=== PATIENT | male | born 1955 | race Caucasian/White ===

== ENCOUNTER 2016-10-28 23:23 | Emergency (ER) | payer BC ==
[2016-10-28] MEDS: NITROGLYCERIN 0.4MG SL TABLET #25 BTL SL PRN ×3 (23:36→23:44)
[2016-10-28] MEDS ORDERED: ASPIRIN 81 MG CHEWABLE TABLET PO ONE ×2 (23:39)
[2016-10-28] MEDS ORDERED: 0.9 % SODIUM CHLORIDE 1000ML 1,000 ML IV PRN (23:39)
--- NOTE | 2016-10-28 23:41 | Emergency Department Record ---
History of Present Illness - General Chief Complaint: Chest Pain Stated Complaint: CHEST PAIN, HIGH BP Time Seen by Provider: 10/28/16 23:35 Source: Patient, Family - History of Present Illness Initial Comments: Intermittent chest pain began around 7 p.m. as a dull squeezing anterior chest discomfort. It then became constant around 9 p.m. It radiating into his anterior jaw/neck associated with indigestion, diaphoresis and pallor. He denies history of AZ, PE. He has htn. and is a former smoker. PMH of hodgkins diagnosed in , recurred in 2001 with a stem cell transplant. Complaint: Chest pain - Related Data Home Medications Medication Instructions Recorded Confirmed Last Taken Albuterol Sulfate [Ventolin Hfa] 1 - 2 inh IH Q4HR PRN 10/28/16 10/28/16 Unknown Losartan Potassium [Cozaar] 100 mg PO DAILY 10/28/16 10/28/16 10/28/16 Verapamil HCl [Verapamil ER] 240 mg PO QAM 10/28/16 10/28/16 10/28/16 Allergies Allergy/AdvReac Type Severity Reaction Status Date / Time No Known Drug Allergies Allergy Verified 10/28/16 23:25 Review of Systems Reviewed: No additional complaints except as noted below Constitutional: Reports: As per HPI. Denies: Chills, Fever, Malaise, Night sweats, Weakness, Weight change Eyes: Reports: As per HPI. Denies: Eye discharge, Eye pain, Photophobia, Vision change ENT: Reports: As per HPI. Denies: Congestion, Dental pain, Ear pain, Epistaxis , Hearing loss, Throat pain Respiratory: Reports: As per HPI. Denies: Cough, Dyspnea, Hemoptysis, Stridor, Wheezes Cardiovascular: Reports: As per HPI. Denies: Arrhythmia, Chest pain, Dyspnea on exertion, Edema, Murmurs, Orthopnea, Palpitations, Paroxysmal nocturnal dyspnea, Rheumatic Fever, Syncope Endocrine: Reports: As per HPI. Denies: Fatigue, Heat or cold intolerance, Polydipsia, Polyuria Gastrointestinal: Reports: As per HPI. Denies: Abdominal pain, Constipation, Diarrhea, Hematemesis, Hematochezia, Melena, Nausea, Vomiting Genitourinary: Reports: As per HPI. Denies: Dysuria, Frequency, Hematuria, Incontinence, Retention, Testicular pain, Testicular mass, Urgency Musculoskeletal: Reports: As per HPI. Denies: Arthralgia, Back pain, Gout, Joint swelling, Myalgia, Neck pain Skin: Reports: As per HPI. Denies: Bruising, Change in color, Change in hair/ nails, Lesions, Pruritus, Rash Neurological: Reports: As per HPI. Denies: Abnormal gait, Confusion, Headache, Numbness, Paresthesias, Seizure, Tingling, Tremors, Vertigo, Weakness Psychiatric: Reports: As per HPI. Denies: Anxiety, Auditory hallucinations, Depression, Homicidal thoughts, Suicidal thoughts, Visual hallucinations Hematological/Lymphatic: Reports: As per HPI. Denies: Anemia, Blood Clots, Easy bleeding, Easy bruising, Swollen glands Past Medical History - SOCIAL HISTORY Smoking Status: Former smoker Physical Exam - General General Appearance: Alert, Oriented x3, Cooperative, Moderate distress - Head Head exam: Normal inspection - Eye Eye exam: Normal appearance, PERRL Pupils: Normal accommodation - ENT ENT exam: Normal exam, Mucous membranes moist, Normal external ear exam, Normal orophraynx, TM's normal bilaterally Ear exam: Normal external inspection. negative: External canal tenderness Nasal Exam: Normal inspection. negative: Discharge, Sinus tenderness Mouth exam: Normal external inspection, Tongue normal Teeth exam: Normal inspection. negative: Dental caries Throat exam: Normal inspection. negative: Tonsillar erythema, Tonsillar exudate - Neck Neck exam: Normal inspection, Full ROM. negative: Tenderness - Respiratory Respiratory exam: Normal lung sounds bilaterally. negative: Respiratory distress - Cardiovascular Cardiovascular Exam: Regular rate, Normal rhythm, Normal heart sounds. negative : Diastolic murmur, Systolic murmur - GI/Abdominal GI/Abdominal exam: Soft, Normal bowel sounds. negative: Tenderness - Rectal Rectal exam: Deferred - exam: Deferred - Extremities Extremities exam: Normal inspection, Full ROM, Normal capillary refill. negative: Tenderness - Back Back exam: Reports: Normal inspection, Full ROM. Denies: Muscle spasm, Rash noted, Tenderness - Neurological Neurological exam: Alert, Normal gait, Oriented X3, Reflexes normal - Psychiatric Psychiatric exam: Normal affect, Normal mood - Skin Skin exam: Dry, Intact, Normal color, Warm Course - Reevaluation(s) Reevaluation #1: SHAY CHEN who is activating the hatchery laborer. Patient and aware and in agreement. 10/28/16 23:57 Reevaluation #2: Patient improved with the nitro trial times 3, then stated his pain is returning on his anterior right chest. Morphine ordered, nitro drip at 5 mics, and 5500 U heparin bolus given with no drip. EMS at bedside preparing transport. Second EKG has ST elevation as before lead V2-6. 10/29/16 00:07 Medical Decision Making - Management Options MDM Management: Additional Work-up Planned (e.g. ADM/Transfer/OP Study) (To chemistry laboratory technician at [facility] Dr. Muñiz) - Data Complexity MDM Data: Labs Ordered and/or Reviewed, X-Ray Ordered and/or Reviewed (CXR portable:Neg per ED physician), EKG Ordered and/or Reviewed - Lab Data Result diagrams: 10/28/16 23:25 10/28/16 23:25 - EKG Data -: EKG Interpreted by Vt EKG: ST Elevation AZ (STEMI) Disposition Disposition: Transfer Clinical Impression: Acute AZ Qualifiers: Myocardial infarction ST status: ST elevation myocardial infarction Involved coronary artery: unspecified coronary artery Qualified Code(s): I21.3 - ST elevation (STEMI) myocardial infarction of unspecified site Disposition: Acute Care Hospital Transfer Transfer To: [facility] chemistry laboratory technician Reason For Transfer: acute [place] Accepting Physician: Dr. Muñiz cardiology Time Discussed w/Accepting Physician: 00:06 Condition: (2) Stable Forms: Patient Portal Access
[2016-10-28 23:44] LABS: BASO % 0.4 % (0-6); EOS % 2.3 % (0-6); GRAN % 64.6 % (47-80); HEMATOCRIT 47.4 % (42.0-52.0); HEMOGLOBIN 16.2 gm/dl (14.0-18.0); LYMPH % 23.5 % (16-45); MEAN CORPUSCULAR HEMOGLOBIN 31.5 pg (27-33); MEAN CORPUSCULAR HGB CONC 34.2 g/dl (32-36); MONO % 9.2 % (0-9); PLATELET COUNT 228 K/uL (130-400); RED BLOOD COUNT 5.15 M/uL (4.40-5.70); RED CELL DISTRIBUTION WIDTH 13.8 % (11.5-14.5)
[2016-10-28] MEDS ORDERED: NITROGLYCERIN/D5W 50 MG in DEXTROSE 5 % IN WATER 1 BAG IV SCH ×2 (23:45)
[2016-10-28 23:54] LABS: ANION GAP 15.1 (7-16); CARBON DIOXIDE 28.9 mmol/L (22-30); CREATININE 1.7 mg/dL (0.66-1.25)
[2016-10-28] MEDS ORDERED: HEPARIN SODIUM 1000 UNIT/1 ML 10ML VIAL IVP ONE (23:58)
[2016-10-28] MEDS ORDERED: MORPHINE SULFATE 5 MG/ML PFS IVP ONE (23:59)
[2016-10-29 00:06] LABS: CKMB 5.3 ug/L (0-6)
[2016-10-29 00:33] LABS: TROPONIN I 0.108 ng/mL (0.00-0.034)
== END 2016-10-29 00:10 | disposition short-term general hospital (02) ==
LOC: ER 23:23
DX: I21.3 ST elevation (STEMI) myocardial infarction of unspecified site (principal); I10 Essential (primary) hypertension; Z87.891 Personal history of nicotine dependence
CPT/HCPCS: 99285 ×2; 96374; 96375; 82550; 85025; 82553; 84484; 80048; 85379; 71010; 93005; 93010; J2270

== ENCOUNTER 2016-11-08 07:59 | Observation (INO) | payer BC ==
--- NOTE | 2016-11-08 08:27 | Emergency Department Record ---
History of Present Illness - General Chief Complaint: Shortness of breath Stated Complaint: SOB Time Seen by Provider: 11/08/16 08:27 Source: Patient Mode of Arrival: Ambulatory Limitations: No limitations - History of Present Illness Initial Comments: The patient is here due to a 2 day hx of SOB and SPENCER. The patient had an Anterior Wall TX 10 days ago and was transferred to [facility] where he received 2 stents. He was discharged 8 days ago and was doing well up until 2 days ago when the PHILIP came on. He feels like he is breathing thru a straw and is having mild upper chest heaviness which is MUCH worse with coughing but it is nothing like when he had his TX. There is mild sweating also. The patient also has had 2 days of body aches, HORN, cough with mild sputum and malaise. MD Complaint: Shortness of breath Onset/Timin -: Days(s) Severity: Moderate Consistency: Constant Improves With: Nothing Worsens With: Nothing Associated Symptoms: Cough Treatments Prior to Arrival: Asprin, Bronchodilator - Related Data Home Oxygen Therapy: No Home Medications Medication Instructions Recorded Confirmed Last Taken Albuterol Sulfate [Ventolin Hfa] 1 - 2 puff IH .EVERY 4-6 HOURS PRN 11/08/1603/2011/08/16 Allopurinol [Zyloprim] 100 mg PO DAILY 11/08/16 11/08/16 11/08/16 Aspirin [Adult Low Dose Aspirin EC] 81 mg PO DAILY 11/08/16 11/08/16 11/08/16 Atorvastatin Calcium 40 mg PO QHS 11/08/16 11/08/16 11/08/16 Carvedilol [Coreg] 6.25 mg PO DAILY 11/08/16 11/08/16 11/08/16 Fluticasone/Salmeterol 100/50 1 disk IH Q12H 11/08/16 11/08/16 11/08/16 [Advair 100/50] Lisinopril [Zestril] 5 mg PO DAILY 11/08/16 11/08/16 11/08/16 Prasugrel HCl [Effient] 10 mg PO DAILY 11/08/16 11/08/16 11/08/16 Allergies Allergy/AdvReac Type Severity Reaction Status Date / Time No Known Drug Allergies Allergy Verified 11/08/16 08:07 Travel Screening - Travel/Exposure Within Last 30 Days Have you traveled within the last 30 days?: No Review of Systems Constitutional: Reports: Chills, Malaise. Denies: Fever Eyes: Denies: Eye discharge ENT: Reports: Congestion Respiratory: Reports: Cough, Dyspnea Cardiovascular: Reports: Dyspnea on exertion. Denies: Arrhythmia, Chest pain Endocrine: Reports: Fatigue Gastrointestinal: Denies: Diarrhea, Vomiting Genitourinary: Denies: Dysuria Musculoskeletal: Denies: Back pain Skin: Denies: Bruising Past Medical History - SOCIAL HISTORY Smoking Status: Former smoker Alcohol Use: None Drug Use: None - RESPIRATORY Hx Respiratory Disorders: Yes Hx Asthma: Yes - CARDIOVASCULAR Hx Cardio Disorders: Yes Hx Hypertension: Yes (2017) - NEURO Hx Neuro Disorders: No - GI Hx GI Disorders: Yes Hx Liver Disease: Yes - Hx Genitourinary Disorders: No - ENDOCRINE Hx Endocrine Disorders: No - MUSCULOSKELETAL Hx Musculoskeletal Disorders: Yes Hx Gout: Yes - PSYCH Hx Psych Problems: No - HEMATOLOGY/ONCOLOGY Hx Hematology/Oncology Disorders: Yes Hx Cancer: Yes (Hodkin's) Hx Chemotherapy: Yes (x2 episodes) Hx Radiation Therapy: Yes Comment:: Stem cell transplant Family Medical History Any Significant Family History?: Yes Hx Cancer: Mother Hx Diabetes: Grandparents Hx Heart Disease: Father Hx HTN: Mother Physical Exam - General General Appearance: Alert, Oriented x3, Cooperative, No acute distress - Head Head exam: Atraumatic, Normocephalic, Normal inspection - Eye Eye exam: Normal appearance, PERRL - ENT Throat exam: Normal inspection. negative: Tonsillar erythema, Tonsillar exudate - Neck Neck exam: Normal inspection, Full ROM. negative: Tenderness - Respiratory Respiratory exam: Normal lung sounds bilaterally. negative: Chest wall tenderness, Rales, Respiratory distress, Rhonchi, Stridor - Cardiovascular Cardiovascular Exam: Regular rate, Normal rhythm, Normal heart sounds - GI/Abdominal GI/Abdominal exam: Soft, Normal bowel sounds. negative: Tenderness - Extremities Extremities exam: Normal inspection, Full ROM, Normal capillary refill. negative: Tenderness - Neurological Neurological exam: Alert, Normal gait. negative: Abnormal gait, Motor sensory deficit Course Vital Signs 11/08/16 08:00 Temperature 98.1 F Pulse Rate 75 Respiratory 20 Rate Blood Pressure 125/80 Pulse Ox 96 - Reevaluation(s) Reevaluation #1: The patient is doing much better at this time. He is resting comfortably and his breathing is much better. He is still coughing with sputum production and his chest pain is much worse with coughing. I did recommend hospital admission for him and he agrees. I also felt he is stable enough for admission here at [facility] due to the fact his symptoms are pulmonary and nothing like when he had his TX. Also the fact his cardiac tests are WNL is very important also. I did consult with Dr. Castelan who is the [facility] [employer] exchange underwriting consultant and he agreed the patient is stable enough to be admitted here. I then discussed the case with Jyoti (ISAAC) and she accepted the admission. 11/08/16 10:20 Reevaluation #2: The patient is resting comfortably at this time. He still is having CP when coughing only. His PHILIP is much improved. 11/08/16 10:27 Medical Decision Making - Data Complexity MDM Data: Labs Ordered and/or Reviewed, X-Ray Ordered and/or Reviewed, EKG Ordered and/or Reviewed - Lab Data Result diagrams: 11/08/16 08:10 11/08/16 08:10 - EKG Data -: EKG Interpreted by Me (NSR at 74, Flipped T V3-6, I AVL, consistent with a hx of an TX 10 days ago) - Radiology Data Radiology results: Report reviewed (CXR: Neg per Rad.) Disposition Disposition: Admit Clinical Impression: COPD exacerbation Decision to Admit: Admit from ER Decision to Admit Date: 11/08/16 Decision to Admit Time: 10:23 Accepting Physician: Sharlene Time Discussed w/Accepting Physician: 10:23 Forms: Patient Portal Access Time of Disposition: 10:23
[2016-11-08] MEDS ORDERED: IPRATROPIUM/ALBUTEROL (0.5MG/3MG) NEB INH ONE (08:38)
[2016-11-08 08:44] LABS: BASO % 0.1 % (0-6); EOS % 0.6 % (0-6); HEMATOCRIT 43.3 % (42.0-52.0); HEMOGLOBIN 15.1 gm/dl (14.0-18.0); LYMPH % 10.8 % (16-45); MEAN CELL VOLUME 91.2 fl (81-97); MEAN CORPUSCULAR HEMOGLOBIN 31.8 pg (27-33); MEAN CORPUSCULAR HGB CONC 34.9 g/dl (32-36); MEAN PLATELET VOLUME 9.1 fl (7.4-10.4); MONO % 13.5 % (0-9); PLATELET COUNT 220 K/uL (130-400); RED BLOOD COUNT 4.75 M/uL (4.40-5.70); RED CELL DISTRIBUTION WIDTH 13.5 % (11.5-14.5); WHITE BLOOD COUNT W/O DIFF 15.8 K/uL (4.2-12.2)
[2016-11-08 09:02] LABS: ANION GAP 11.6 (7-16); BLOOD UREA NITROGEN 20 mg/dL (9-20); CARBON DIOXIDE 24.4 mmol/L (22-30); CREATINE PHOSPHOKINASE 66 U/L (55-170); CREATININE 1.1 mg/dL (0.66-1.25); EST GLOMERULAR FILTRATION RATE > 60 ml/min; GLUCOSE,RANDOM 117 mg/dL (70-110)
[2016-11-08 09:04] LABS: INR 0.91; PROTHROMBIN TIME (PATIENT) 10.3 SECONDS (9.5-12.1)
[2016-11-08 09:05] LABS: D-DIMER 0.44 mg/L FEU (0-0.59)
[2016-11-08 09:15] LABS: CKMB 0.9 ug/L (0-6)
[2016-11-08 09:17] LABS: INFLUENZA A NEGATIVE (NEGATIVE); INFLUENZA B NEGATIVE (NEGATIVE)
[2016-11-08] MEDS ORDERED: ALBUTEROL SULFATE (0.083%) 2.5 MG/3 ML NEB INH ONE (09:26)
[2016-11-08] MEDS ORDERED: METHYLPREDNISOLONE PF 125MG/VIAL IVP ONE (09:31)
[2016-11-08] MEDS ORDERED: CEFTRIAXONE SODIUM 1 GM in 0.9 % SODIUM CHLORIDE 100ML 100 ML IVPB ONE (10:19)
[2016-11-08] MEDS ORDERED: AZITHROMYCIN 500 MG in 0.9 % SODIUM CHLORIDE 250ML 250 ML IVPB ONE (10:19)
[2016-11-08] MEDS ORDERED: CEFTRIAXONE SODIUM 1 GM in 0.9 % SODIUM CHLORIDE 100ML 100 ML IVPB SCH (11:12)
[2016-11-08] MEDS ORDERED: FLUTICASONE/SALMETEROL 100/50 DISKUS INH SCH (11:12)
[2016-11-08] MEDS ORDERED: AZITHROMYCIN 500 MG in 0.9 % SODIUM CHLORIDE 250ML 250 ML IVPB SCH (11:12)
[2016-11-08] MEDS ORDERED: ALBUTEROL SULFATE (0.083%) 2.5 MG/3 ML NEB INH PRN (11:26)
--- NOTE | 2016-11-08 12:37 | History & Physical ---
History of Present Illness - Date of Service Date of Service for History & Physical: 11/08/16 - History of Present Illness Admitting Diagnosis: 1. COPD Excacerbation with PHILIP and wheezing. History of Present Illness: 61yo male with CC of cough and shortness of breath. He has a history of Anterior LA with 2 stents 10 days ago was at [facility], HTN, asthma, Hodgkin's lymphoma requiring chemotherapy, radiation and stem cell transplant per patient , liver disease, and was a former smoker Patient presented to the ED with 2 day history of progressive cough and shortness of breath. He reported a cough productive of thick green sputum. He had been feeling warm and chilled off and on but did not take his temperature. He started becoming more short of breath feeling like he couldn't get air in despite using rescue inhaler at home. Says he was having sharp sternal pain with coughing. This morning he decided to come to the ED. While in the ED, patient had EKG which showed flipped T waves in leads V1-3 and AVL consistent with anterior LA from 10 days ago. No acute ischemic changes noted. Troponin was in the indeterminate range at 0.05. This was down considerably from 6 at the time of LA 10 days ago. BP 125/80 with heart rate of 75 and o2 sat at 96% on room air. CXR was negative for acute changes.D-Dimer negative. Rapid influenza negative. WBC count was elevated at 15.8 with no left shift. BNP was 184 within cut off range of 300. Dr. Castelan on-call for [facility] was contacted and felt patient could be cared for at [facility]. blood cultures were obtained and patient was started on empiric antibiotic treatment with levaquin and admitted for serial enzymes and continued cardiac monitoring. 11/08/16- Patient reports feeling that his cough has improved since receiving several duoneb treatments. His shortness of breath has improved as well but still not feeling like he is moving air in very well. Patient denies nasal congestion, ear pain or post nasal drip. Says his throat feels scratchy from coughing and is having some sharp pain over the sternum with cough. He says this is very different from the pain he was having with the heart attack. He admits to having asthma but has not been following with his PCP very often. Prior to his stay at [facility] he was not taking any regular medications. He was prescribed advair while at [facility] and was referred to learning manager but has not started advair. He has never been diagnosed with COPD but has significant smoking history. He has follow up with Cardiology scheduled next week and again in December. He reports having an echocardiogram done while at [facility] about 8 days ago. PCP: Dr. Garcia Associate Pastor: [employer] Travel Screening - Travel/Exposure Within Last 30 Days Have you traveled within the last 30 days?: No - Travel/Exposure Within Last Year Have you traveled outside the [place] in the last year?: No - Additonal Travel Details Have you been exposed to anyone with a communicable illness?: No - Travel Symptoms Symptom Screening: Headache, Chills Review of Systems Constitutional: Reports: Chills, Malaise. Denies: Fever Eyes: Denies: Eye discharge ENT: Reports: Congestion Respiratory: Reports: Cough, Dyspnea Cardiovascular: Reports: Dyspnea on exertion. Denies: Arrhythmia, Chest pain Endocrine: Reports: Fatigue Gastrointestinal: Denies: Diarrhea, Vomiting Genitourinary: Denies: Dysuria Musculoskeletal: Denies: Back pain Skin: Denies: Bruising Past Medical History - SOCIAL HISTORY Smoking Status: Former smoker Alcohol Use: None Drug Use: None - RESPIRATORY Hx Respiratory Disorders: Yes Hx Asthma: Yes - CARDIOVASCULAR Hx Cardio Disorders: Yes Hx Hypertension: Yes (2017) - NEURO Hx Neuro Disorders: No - GI Hx GI Disorders: Yes Hx Liver Disease: Yes - Hx Genitourinary Disorders: No - ENDOCRINE Hx Endocrine Disorders: No - MUSCULOSKELETAL Hx Musculoskeletal Disorders: Yes Hx Gout: Yes - PSYCH Hx Psych Problems: No - HEMATOLOGY/ONCOLOGY Hx Hematology/Oncology Disorders: Yes Hx Cancer: Yes (Hodkin's) Hx Chemotherapy: Yes (x2 episodes) Hx Radiation Therapy: Yes Comment:: Stem cell transplant Family Medical History Any Significant Family History?: Yes Hx Cancer: Mother Hx Diabetes: Grandparents Hx Heart Disease: Father Hx HTN: Mother H&P Meds/Allergies - Allergies Allergies: Allergies Allergy/AdvReac Type Severity Reaction Status Date / Time No Known Drug Allergies Allergy Verified 11/08/16 08:07 - Home Medications Home Medications Medication Instructions Recorded Confirmed Last Taken Albuterol Sulfate [Ventolin Hfa] 1 - 2 puff IH .EVERY 4-6 HOURS PRN 11/08/1603/2011/08/16 Allopurinol [Zyloprim] 100 mg PO DAILY 11/08/16 11/08/16 11/08/16 Aspirin [Adult Low Dose Aspirin EC] 81 mg PO DAILY 11/08/16 11/08/16 11/08/16 Atorvastatin Calcium 40 mg PO QHS 11/08/16 11/08/16 11/08/16 Carvedilol [Coreg] 6.25 mg PO BID 11/08/16 11/08/16 11/08/16 Fluticasone/Salmeterol 100/50 1 disk IH Q12H 11/08/16 11/08/16 11/08/16 [Advair 100/50] Lisinopril [Zestril] 5 mg PO DAILY 11/08/16 11/08/16 11/08/16 Prasugrel HCl [Effient] 10 mg PO DAILY 11/08/16 11/08/16 11/08/16 - Active Medications Active Medications: Current Medications Acetaminophen (Tylenol 500mg Tab) 500 mg PO Q6H PRN PRN Reason: PAIN/TEMP Albuterol Sulfate () 2.5 mg INH Q4H PRN PRN Reason: SHORTNESS OF BREATH Albuterol/Ipratropium (Duoneb) 3 ml INH RESP.Q4H.[facility] Allopurinol (Zyloprim) 100 mg PO DAILY [facility] Aspirin (Ecotrin (Ec)) 81 mg PO DAILY [facility] Atorvastatin Calcium (Lipitor) 40 mg PO QHS [facility] Carvedilol (Coreg) 6.25 mg PO BID [facility] Levofloxacin/Dextrose (Levaquin 750mg Ivpb) 150 mls @ 100 mls/hr IVPB DAILY [facility] Stop: 11/14/16 11:31 Last Admin: 11/08/16 12:01 Dose: 100 mls/hr Lisinopril (Zestril) 5 mg PO DAILY [facility] Methylprednisolone Sodium Succinate (Solu-Medrol) 60 mg IVP DAILY [facility] Patient Own Med: Prasugrel 10 Mg ( Effient) 1 each PO DAILY [facility] Physical Exam - Vital Signs Vital Signs: Vital Signs - Last 24 Hrs Temp Pulse Resp BP Pulse Ox 11/08/16 11:12 98.1 F 69 20 114/75 100 11/08/16 10:50 69 18 111/72 99 - General General Appearance: Alert, Oriented x3, Cooperative, No acute distress Limitations: No limitations - Head Head exam: Atraumatic, Normocephalic, Normal inspection - Eye Eye exam: Normal appearance, PERRL - ENT ENT exam: Normal exam, Mucous membranes moist, Normal external ear exam, Normal orophraynx, TM's normal bilaterally Ear exam: Normal external inspection. negative: External canal tenderness Nasal Exam: Normal inspection. negative: Discharge, Sinus tenderness Mouth exam: Normal external inspection, Tongue normal Teeth exam: Normal inspection. negative: Dental caries Throat exam: Normal inspection. negative: Tonsillar erythema, Tonsillar exudate - Neck Neck exam: Normal inspection, Full ROM. negative: Tenderness - Respiratory Respiratory exam: Normal lung sounds bilaterally. negative: Chest wall tenderness, Rales, Respiratory distress, Rhonchi, Stridor - Cardiovascular Cardiovascular Exam: Regular rate, Normal rhythm, Systolic murmur - GI/Abdominal GI/Abdominal exam: Soft, Normal bowel sounds. negative: Tenderness - Extremities Extremities exam: Normal inspection, Full ROM, Normal capillary refill. negative: Tenderness - Neurological Neurological exam: Alert, Normal gait. negative: Abnormal gait, Motor sensory deficit Results - Labs Result Diagrams: 11/09/16 06:10 11/08/16 08:10 - Imaging and Cardiology Chest x-ray Status: Report reviewed (no acute process) VTE H&P Assessment - Risk for VTE Risk for VTE: No Risk Level: Low Risk Assessment Date: 11/08/16 Risk Assessment Time: 12:39 VTE Orders Placed or Will Be Placed: No VTE Reason for No Prophylaxis: Not Indicated (patient currently on effient and aspirin ) Plan - Detailed Diagnosis and Plan (1) Asthma exacerbation Current Visit: Yes Status: Acute Base Code: J45.901 - UNSPECIFIED ASTHMA WITH (ACUTE) EXACERBATION Comment: 11/08/16- CXR negative for acute process. Rapid flu negative. WBC of 15.8 but patient remains afebrile. Blood cultures obtained and pending. Patient diagnosed with asthma many years ago and is being refered to pulmonology for work up of COPD. Has not started advair due to cost. Will start COPD pathway with steroids and empiric abx -respiratory viral panel by pcr ordered -levaquin 750mg IV daily -solumedrol 60mg IV daily -continue duoneb treatments q4H prn shortness of breath -continue VS q8H -repeat labs qam (2) Chest pain, mid sternal Current Visit: Yes Status: Acute Base Code: R07.89 - OTHER CHEST PAIN Comment: 11/08/16- Patient having sharp pain over sternum with cough only. EKG showed flipped T-waves in anterior leads but no new ischemic changes. Troponin was in 0.05 down from >6 a week ago when he had STEMI. D-Dimer WNL range. Suspect pain is MSK in etiology with frequent coughing -continue serial enzymes to ensure troponin is trending downward -continue cardiac monitoring -echo ordered to eval for effusion, pericarditis -continue tylenol for pain control -repeat EKG qam (3) Patient is full code Current Visit: Yes Status: Acute Base Code: Z78.9 - OTHER SPECIFIED HEALTH STATUS Comment: 11/08/16- Patient is full code status (4) DVT prophylaxis Current Visit: Yes Status: Acute Base Code: [id number] - Comment: 11/08/16- Patient is low risk. Currently on effient and aspirin. -will continue home medications -will ad SCD's while in bed
[2016-11-08] MEDS: ACETAMINOPHEN 500 MG TABLET PO PRN (13:16)
[2016-11-08] MEDS: IPRATROPIUM/ALBUTEROL (0.5MG/3MG) NEB INH SCH ×3 (14:22→21:28)
[2016-11-08] MEDS: CARVEDILOL 3.125 MG TABLET PO SCH (21:20)
[2016-11-08] MEDS ORDERED: ATORVASTATIN 20 MG TABLET PO SCH (22:00)
[2016-11-08 22:45] LABS: CKMB 1.2 ug/L (0-6); TROPONIN I 0.024 ng/mL (0.00-0.034)
[2016-11-09] MEDS: ACETAMINOPHEN 500 MG TABLET PO PRN (00:40)
[2016-11-09] MEDS: IPRATROPIUM/ALBUTEROL (0.5MG/3MG) NEB INH SCH ×2 (05:52→09:59)
[2016-11-09 06:30] LABS: HEMATOCRIT 41.8 % (42.0-52.0); HEMOGLOBIN 14.5 gm/dl (14.0-18.0); MEAN CELL VOLUME 91.3 fl (81-97); MEAN CORPUSCULAR HEMOGLOBIN 31.7 pg (27-33); MEAN CORPUSCULAR HGB CONC 34.7 g/dl (32-36); MEAN PLATELET VOLUME 9.2 fl (7.4-10.4); PLATELET COUNT 227 K/uL (130-400); RED BLOOD COUNT 4.58 M/uL (4.40-5.70); RED CELL DISTRIBUTION WIDTH 13.3 % (11.5-14.5)
[2016-11-09 06:41] LABS: CARBON DIOXIDE 21.7 mmol/L (22-30); CREATININE 0.9 mg/dL (0.66-1.25); EST GLOMERULAR FILTRATION RATE > 60 ml/min; GLUCOSE,RANDOM 129 mg/dL (70-110)
[2016-11-09 06:43] LABS: WHITE BLOOD COUNT W/O DIFF 24.3 K/uL (4.2-12.2)
[2016-11-09 06:53] LABS: ANION GAP 12.3 (7-16); BLOOD UREA NITROGEN 20 mg/dL (9-20)
--- NOTE | 2016-11-09 07:20 | Discharge Summary ---
Providers Discharge Summary Date: 11/09/16 Date of admission: 11/08/16 10:43 Expected Date of Discharge: 11/09/16 Attending physician: THUY LOTT Primary care physician: MARITZA GARCIA D.O. Physical Exam - Vital Signs Vital Signs: Vital Signs - Last 24 Hrs Temp Pulse Pulse Pulse Resp BP Pulse Ox 11/09/16 05:52 60 20 97 11/09/16 05:43 98.9 F 65 16 144/92 95 11/09/16 03:14 98.6 F 69 16 140/81 94 L 11/08/16 22:15 66 11/08/16 22:06 20 11/08/16 22:00 98.7 F 78 14 147/90 96 11/08/16 21:28 79 18 97 11/08/16 18:04 97 11/08/16 17:28 66 18 99 11/08/16 17:12 98.1 F 80 16 136/88 11/08/16 14:25 72 18 99 11/08/16 13:58 69 11/08/16 13:12 98.1 F 71 18 123/74 98 11/08/16 11:12 98.1 F 69 20 114/75 100 11/08/16 10:50 69 18 111/72 99 - General General Appearance: Alert, Oriented x3, Cooperative, No acute distress Limitations: No limitations - Head Head exam: Atraumatic, Normocephalic, Normal inspection - Eye Eye exam: Normal appearance, PERRL - ENT ENT exam: Normal exam, Mucous membranes moist, Normal external ear exam, Normal orophraynx, TM's normal bilaterally Ear exam: Normal external inspection. negative: External canal tenderness Nasal Exam: Normal inspection. negative: Discharge, Sinus tenderness Mouth exam: Normal external inspection, Tongue normal Teeth exam: Normal inspection. negative: Dental caries Throat exam: Normal inspection. negative: Tonsillar erythema, Tonsillar exudate - Neck Neck exam: Normal inspection, Full ROM. negative: Tenderness - Respiratory Respiratory exam: Normal lung sounds bilaterally. negative: Chest wall tenderness, Rales, Respiratory distress, Rhonchi, Stridor - Cardiovascular Cardiovascular Exam: Regular rate, Normal rhythm, Systolic murmur - GI/Abdominal GI/Abdominal exam: Soft, Normal bowel sounds. negative: Tenderness - Extremities Extremities exam: Normal inspection, Full ROM, Normal capillary refill. negative: Tenderness - Neurological Neurological exam: Alert, Normal gait. negative: Abnormal gait, Motor sensory deficit Hospitalization - Hospitalization Admission Diagnosis: 1. COPD Excacerbation with PHILIP and wheezing. - Problem List/Discharge Diagnosis (1) Asthma exacerbation Current Visit: Yes Status: Acute Base Code: J45.901 - UNSPECIFIED ASTHMA WITH (ACUTE) EXACERBATION Comment: 11/09/16- Improved SOB and cough. CXR negative for acute process. Rapid flu negative. WBC up to 24 but patient remains afebrile. Likely steroid use causing increase. CRP down slighlty to 4.3. Blood cultures and Respiratory panel still pending. Will plan to discharge home with PCP follow up on the until he can get in to pulmology. -continue levaquin 500mg po daily for 5 more days -continue prednisone 40mg po daily for 3 more days -script for duoneb solution sent in to pharmacy -script for nebulizer given to patient to be taken to medical supply store -Patient will need repeat labs with PCP in about a week (2) Chest pain, mid sternal Current Visit: Yes Status: Acute Base Code: R07.89 - OTHER CHEST PAIN Comment: 11/09/16- Improved. Repeat EKG this morning shows no acute changes. Troponin continues to trend downwards and is WNL range. D-Dimer WNL range. Echo showed EF of 71% with Aortic stenosis. No evidence of effusion or pericarditis. Suspect pain is MSK in etiology with frequent coughing -Follow up with Cardiology on 11/14/16 as previously scheduled (3) Patient is full code Current Visit: Yes Status: Acute Base Code: Z78.9 - OTHER SPECIFIED HEALTH STATUS Comment: 11/09/16- Patient is full code status (4) DVT prophylaxis Current Visit: Yes Status: Acute Base Code: [id number] - Comment: 11/09/16- Patient was low risk. Currently on effient and aspirin. -continue home medications -SCD's used while in bed - Hospitalization Course Disposition: Home, Self-Care Hospital Course: 61yo male with CC of cough and shortness of breath. He has a history of Anterior VT with 2 stents 10 days ago was at [facility], HTN, asthma, Hodgkin's lymphoma requiring chemotherapy, radiation and stem cell transplant per patient , liver disease, and was a former smoker Patient presented to the ED with 2 day history of progressive cough and shortness of breath. He reported a cough productive of thick green sputum. He had been feeling warm and chilled off and on but did not take his temperature. He started becoming more short of breath feeling like he couldn't get air in despite using rescue inhaler at home. Says he was having sharp sternal pain with coughing. This morning he decided to come to the ED. While in the ED, patient had EKG which showed flipped T waves in leads V1-3 and AVL consistent with anterior VT from 10 days ago. No acute ischemic changes noted. Troponin was in the indeterminate range at 0.05. This was down considerably from 6 at the time of VT 10 days ago. BP 125/80 with heart rate of 75 and o2 sat at 96% on room air. CXR was negative for acute changes.D-Dimer negative. Rapid influenza negative. WBC count was elevated at 15.8 with no left shift. BNP was 184 within cut off range of 300. Dr. Castelan on-call for [facility] was contacted and felt patient could be cared for at [facility]. blood cultures were obtained and patient was started on empiric antibiotic treatment with levaquin and admitted for serial enzymes and continued cardiac monitoring. 11/08/16- Patient reports feeling that his cough has improved since receiving several duoneb treatments. His shortness of breath has improved as well but still not feeling like he is moving air in very well. Patient denies nasal congestion, ear pain or post nasal drip. Says his throat feels scratchy from coughing and is having some sharp pain over the sternum with cough. He says this is very different from the pain he was having with the heart attack. He admits to having asthma but has not been following with his PCP very often. Prior to his stay at [facility] he was not taking any regular medications. He was prescribed advair while at [facility] and was referred to in house counsel but has not started advair. He has never been diagnosed with COPD but has significant smoking history. He has follow up with Cardiology scheduled next week and again in December. He reports having an echocardiogram done while at [facility] about 8 days ago. 11/09/16- Patient reports significant improvement in shortness of breath. States he is moving air much better doesn't feel tight like he did yesterday. He did not need any breathing treatments through the night. States his cough has improved as well and not coughing thick sputum up anymore. did not feel hot or chilled through the night. appetite is normal and feels like his energy level has improved as well. Still has a little sternal pain with cough but says even that has improved. No left sided chest pain, left arm numbness/tingling, vision changes or lower extremity swelling. Patient has follow up on Monday with cardiology and Pcp next PCP: Dr. Garcia Stock Associate: [facility] Procedures: Cardiology Procedures 11/08/16 13:00 Echocardiogram 2D - Limited NOW 11/08/16 13:04 Echo W/CF & Cardiac Doppler NOW Abnormal Labs: Abnormal Lab Results 11/09/16 11/09/16 11/09/16 Range/Units 06:10 06:10 06:10 WBC 24.3 H* (4.2-12.2) K/uL Hct 41.8 L (42.0-52.0) % Neutrophils % 93.0 H (47-80) % Lymphocytes % 3.0 L (16-45) % Carbon Dioxide 21.7 L (22-30) mmol/L Random Glucose 129 H (70-110) mg/dL C-Reactive Protein 4.3 H (0.0-0.9) mg/dL Condition at Discharge: (2) Stable Discharge Medications - Discharge Medications Prescriptions: Ipratropium/Albuterol [Duoneb] 3 ml INH RESP.Q4H.WA #10 ampul.neb Levofloxacin [Levaquin Tab] 500 mg PO DAILY #5 tab Prednisone [Prednisone 20Mg] 40 mg PO DAILY #6 tab Home Medications: Ambulatory Orders Albuterol Sulfate [Ventolin Hfa] 1 - 2 puff IH .EVERY 4-6 HOURS PRN 11/08/16 [ Last Taken 11/08/16] Allopurinol [Zyloprim] 100 mg PO DAILY 11/08/16 [Last Taken 11/08/16] Aspirin [Adult Low Dose Aspirin EC] 81 mg PO DAILY 11/08/16 [Last Taken 11/08/16 ] Atorvastatin Calcium 40 mg PO QHS 11/08/16 [Last Taken 11/08/16] Carvedilol [Coreg] 6.25 mg PO BID 11/08/16 [Last Taken 11/08/16] Fluticasone/Salmeterol 100/50 [Advair 100/50] 1 disk IH Q12H 11/08/16 [Last Taken 11/08/16] Lisinopril [Zestril] 5 mg PO DAILY 11/08/16 [Last Taken 11/08/16] Prasugrel HCl [Effient] 10 mg PO DAILY 11/08/16 [Last Taken 11/08/16] Ipratropium/Albuterol [Duoneb] 3 ml INH RESP.Q4H.WA #10 ampul.neb 11/09/16 [ Last Taken Unknown] Levofloxacin [Levaquin Tab] 500 mg PO DAILY #5 tab 11/09/16 [Last Taken Unknown] Prednisone [Prednisone 20Mg] 40 mg PO DAILY #6 tab 11/09/16 [Last Taken Unknown] Discharge Plan - Discharge Instructions Activity at Discharge: Resume Usual Activities As Tolerated Diet at Discharge: Low Fat, Low Cholesterol Additional Instructions: Follow up with Dr. Garcia in on 11/17/16 days for asthma/COPD exacerbation Follow up with cardiology on 11/14/16 as previously scheduled Continue Levaquin 500mg PO daily for 5 more days continue prednisone 40mg PO daily for 3 more days Continue albuterol 1-2 puffs q4H prn Shortness of breath Please call with any questions and return to ED at any time for new or worsening symptoms
[2016-11-09] MEDS: CARVEDILOL 3.125 MG TABLET PO SCH (09:32)
[2016-11-09] MEDS ORDERED: ASPIRIN 81 MG TABEC PO SCH (10:00)
[2016-11-09] MEDS ORDERED: LEVOFLOXACIN 500 MG TABLET PO ONE (10:00)
[2016-11-09] MEDS ORDERED: LISINOPRIL 5 MG TABLET PO SCH (10:00)
[2016-11-09] MEDS ORDERED: PRASUGREL 10 MG PO SCH (10:00)
[2016-11-09] MEDS ORDERED: ALLOPURINOL 100 MG TAB PO SCH (10:00)
[2016-11-09] MEDS ORDERED: METHYLPREDNISOLONE PF 125MG/VIAL IVP SCH (10:00)
[2016-11-09] MEDS ORDERED: LEVOFLOXACIN/D5W 150 ML IVPB SCH (11:30)
--- NOTE | 2016-11-11 15:33 | RADIOLOGY REPORT ---
EXAM: CHEST AP or PA ONLY HISTORY: HEAVINESS IN CHEST. TECHNIQUE: Single AP portable view of the chest is provided along with a comparison study dated 10/29/2016. FINDINGS: The cardiac silhouette is magnified. Mild tortuosity of the thoracic aorta as noted. Shruthi appear unremarkable. There is no radiographic evidence of any focal infiltrate, pleural effusion, or pneumothorax. IMPRESSION: NO RADIOGRAPHIC EVIDENCE OF AN ACUTE INTRATHORACIC PROCESS. JOB NUMBER: [id number] MTDD
== END 2016-11-09 10:55 | disposition home or self-care (01) ==
LOC: ER 07:59 → MEDSURG 10:43
PROVIDERS: ADMIT Family Medicine; ATTEND Family Medicine
DX: J45.901 Unspecified asthma with (acute) exacerbation (principal); R07.89 Other chest pain; Z78.9 Other specified health status
CPT/HCPCS: 93041; 99285 ×2; 94760; 96374; 82550; 85025; 85651; 85730; 85610; 86140 ×2; 82553; 84484; 80048 ×2; 87400; 85379; 85027; 83880; 71010; 94640 ×3; 94761 ×2; 93005 ×2; 93010 ×2; G0378 ×2; J1956; 99220; J2930; J7613